=== PATIENT | female | born 1990 | race Caucasian/White ===

== ENCOUNTER 2025-01-01 04:33 | Emergency (ER) | payer MEDICAID ==
[~2025-01-01] VITALS: Ht 165.1 cm; Wt 88.3 kg
[2025-01-01 04:45] VITALS: O2SAT 98
[2025-01-01 05:21] VITALS: BP 119/62; PULSE 64; RESP 18; TEMP 36.8; O2SAT 96
[2025-01-01] MEDS: TETANUS, DIPHTHERIA, PERTUSSIS VAC/PF 0.5ML (>10YR OLD) IM ONE (05:24)
== END 2025-01-01 05:33 | disposition home or self-care (01) ==
LOC: ER 04:33
DX: S61.211A Laceration without foreign body of left index finger without damage to nail, initial encounter (principal); Z23 Encounter for immunization; W45.0XXA Nail entering through skin, initial encounter; Y93.89 Activity, other specified; Y92.89 Other specified places as the place of occurrence of the external cause; Y99.8 Other external cause status
CPT/HCPCS: 90715; 90471; 99283; Z7610